=== PATIENT | male | born 1975 | race Caucasian/White ===

== ENCOUNTER 2020-10-23 09:40 | Outpatient (CLI) | payer MEDICARE, MEDICAID, SELFPAY ==
--- NOTE | 2020-10-23 09:57 | US_ITS ---
WS: [id number] RENAL ULTRASOUND HISTORY: BLADDER DYSFUNCTION COMPARISON: None available. TECHNIQUE: 2-D and color Doppler imaging of the kidney submitted. Right kidney: 6.9 cm x 3.8 cm x 3.2 cm. Normal echogenicity with no hydronephrosis or mass. Left kidney: 9.3 cm x 4.4 cm x 4.0 cm. Normal echogenicity with no hydronephrosis or mass. Aorta: Normal. Urinary Bladder: Mildly distended bladder with mild wall thickening. No focal mass. US/US renal BI* [id number] IMPRESSION: Normal renal ultrasound.
== END 2020-10-23 09:41 | disposition home or self-care (01) ==
LOC: RAD 09:46
PROVIDERS: PCP Family Medicine; Visit Provider Urology
DX: N31.9 Neuromuscular dysfunction of bladder, unspecified (principal)
CPT/HCPCS: 76770

== ENCOUNTER 2021-05-18 02:18 | Emergency (ER) | payer MEDICARE, MEDICAID, SELFPAY ==
[2021-05-18 02:25] VITALS: BP 149/71; PULSE 137; RESP 18; TEMP 36.6; O2SAT 97; BMI 17.3
[2021-05-18 04:04] LABS: Add Urine Microscopic? YES; Bilirubin Urine Neg (Negative); Blood Urine 4+ (Negative); Glucose Urine UA Norm (Normal); Ketones Urine Negative (Negative); Leukocyte Esterase Urine Trace (Negative); Nitrate Urine Negative (Negative); Protein Urine 3+ (Negative); Specific Gravity, Urine 1.005 (1.005-1.030); Urine Appearance Cloudy (CLEAR); Urine Color Red (Yellow); Urobilinogen Urine Norm (Negative); pH Urine 7 (5-7)
[2021-05-18 04:05] LABS: Add Urine Culture? Yes; Bacteria Urine 1+ /hpf; RBC Urine TOO NUMEROUS TO CNT /hpf (0-2); Squamous Epithelial Cell Urine 0-4 /hpf (0-5)
[2021-05-18 04:28] VITALS: BP 149/71; PULSE 137; RESP 18; TEMP 36.6; O2SAT 97
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
== END 2021-05-18 04:30 | disposition home or self-care (01) ==
PROVIDERS: Emergency Provider Emergency Medicine
DX: T83.021A Displacement of indwelling urethral catheter, initial encounter (principal); N31.9 Neuromuscular dysfunction of bladder, unspecified; G82.50 Quadriplegia, unspecified; F17.210 Nicotine dependence, cigarettes, uncomplicated
CPT/HCPCS: 51702; 81001; 87077; 87086; 87186; 99283

== ENCOUNTER 2021-10-24 09:36 | Outpatient (CLI) | payer MEDICARE, MEDICAID, SELFPAY ==
--- NOTE | 2021-10-24 10:00 | US_ITS ---
WS: [id number] RENAL ULTRASOUND HISTORY: NEUROGENIC BLADDER COMPARISON: 10/23/2020 TECHNIQUE: 2-D and color Doppler imaging of the kidney submitted. Right kidney: 10.2 cm x 3.8 cm x 3.6 cm. RIGHT kidney is measuring larger today than on the most recent examination. The entire kidney was pro bably not visualized on the prior exam. The measurement appears adequate on today's study. No hydrone phrosis or mass. Left kidney: 9.4 cm x 4.2 cm x 4.4 cm. Normal echogenicity with no hydronephrosis or mass. Aorta: Normal. Urinary Bladder: Mildly distended bladder. No intraluminal filling defect. Bladder wall is mildly thi ckened but this may be due to underdistention or neurogenic bladder. US/US renal BI* [id number] IMPRESSION: 1. Normal renal ultrasound. Previously atrophic RIGHT kidney is better visuali zed today. The measurements are normal. No renal atrophy is identified. 2. Minimally distended urinary bladder.
== END 2021-10-24 09:37 | disposition home or self-care (01) ==
LOC: RAD 09:37
PROVIDERS: Visit Provider Urology
DX: N31.9 Neuromuscular dysfunction of bladder, unspecified (principal)
CPT/HCPCS: 76770

== ENCOUNTER 2022-06-10 19:23 | Emergency (ER) | payer MEDICARE, MEDICAID, SELFPAY ==
[2022-06-10 19:46] VITALS: BP 102/69; PULSE 84; RESP 16; TEMP 37.3; O2SAT 95
[2022-06-10 19:49] VITALS: BP 93/56; PULSE 106; RESP 18; O2SAT 96
[2022-06-10 20:05] VITALS: PULSE 106
--- NOTE | 2022-06-10 20:19 | USR_ITS ---
PROCEDURE INFORMATION: Exam: US Duplex Left Upper Extremity Veins, Limited Exam date and time: 06/10/2022 9:37 PM Age: 46 years old Clinical indication: Edema, localized; Upper extremity, left; Patient HX: Lue edema x 2-3 hours per patient. No history of dvt per patient. ; Additional info: Concern for dvt TECHNIQUE: Imaging protocol: Real-time Duplex ultrasound of the Left Upper Extremity with 2-D malin scale, color Doppler flow and spectral waveform analysis with image documentation. Limited exam focused on the left upper extremity veins. COMPARISON: CT forearm LT w con [id number] 06/10/2022 8:37 PM FINDINGS: Left deep veins: Unremarkable. Axillary and brachial veins are patent throughout without thrombus. Normal Doppler waveforms. Normal compressibility and/or augmentation response. Visualized internal jugular and subclavian veins are patent. Left superficial veins: Unremarkable. Visualized cephalic and basilic veins are patent without thrombus. Soft tissues: Unremarkable. US/[place] [id number] IMPRESSION: No evidence of deep vein thrombosis.
--- NOTE | 2022-06-10 20:19 | CTR_ITS ---
PROCEDURE INFORMATION: Exam: CT Left Upper Extremity With Contrast, Forearm Exam date and time: 06/10/2022 8:37 PM Age: 46 years old Clinical indication: Swelling; Elbow and other: Forearm; Left; Additional info: Concern for deep abscess TECHNIQUE: Imaging protocol: Computed tomography of the Left upper extremity with contrast. Exam focused on the forearm. Radiation optimization: All CT scans at this facility use at least one of these dose optimization techniques: automated exposure control; mA and/or kV adjustment per patient size (includes targeted exams where dose is matched to clinical indication); or iterative reconstruction. Contrast material: OMNIPAQUE 350; Contrast volume: 95 ml; Contrast route: INTRAVENOUS (IV); COMPARISON: No relevant prior studies available. RADIATION DOSE METRICS: Total DLP (mGy-cm): 429.91 FINDINGS: Bones/joints: See Soft tissues finding. Soft tissues: Subcutaneous fluid collection measuring 7 x 5.4 cm seen overlying the posterior aspect of the elbow in the subcutaneous fat consistent with an abscess without bony abnormality or extension of the fluid into the joint space. Diffuse subcutaneous edema throughout the forearm is also seen. CT/CT forearm LT w con [id number] IMPRESSION: Subcutaneous fluid collection measuring 7 x 5.4 cm seen overlying the posterior aspect of the elbow in the subcutaneous fat consistent with an abscess without bony abnormality or extension of the fluid into the joint space. Diffuse subcutaneous edema throughout the forearm is also seen, suggestive of cellulitis.
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
[2022-06-10] MEDS: iohexol 350 mg/mL 500 mL Btl (per mL) IV (20:52)
[2022-06-10 21:30] LABS: Basophils % 0.2 %; Eosinophils % 0.2 %; Hematocrit 40.6 % (42.0-52.0); Hemoglobin 13.8 g/dL (11.7-16.6); Lymphocytes # 1.2 10^3/uL (0.8-4.8); Lymphocytes % 8.4 %; Mean Corpuscular Hemoglobin 29.2 pg (28.0-34.0); Mean Corpuscular Volume 85.8 fl (80-94); Mean Platelet Volume 11.3 fL (7.4-10.4); Monocytes # 1.5 10^3/uL (0.2-0.9); Monocytes % 10.5 %; Neutrophils # 11.53 10^3/uL (1.8-7.7); Neutrophils % 80.4 %; Nucleated Red Blood Cells % 0 %; Platelet Count 167 10^3/cmm (130-400); Red Blood Count 4.73 10^6/uL (4.1-5.3); Red Cell Distribution Width 12.8 % (12.1-15.1); White Blood Count 14.4 10^3/uL (4.0-10.0)
[2022-06-10 21:37] LABS: Erythrocyte Sedimentation Rate 32 mm/hr (0-10)
[2022-06-10 21:48] LABS: Lactate (Lactic Acid level) 1.5 mmol/L (0.5-2.2)
[2022-06-10 21:49] LABS: Alanine Aminotransferase 12 U/L (0-41); Albumin Level 3.6 g/dL (3.5-5.2); Alkaline Phosphatase 97 U/L (40-130); Anion Gap 13.6 (5-19); Aspartate Amino Transferase 16 U/L (0-40); Blood Urea Nitrogen 18 mg/dL (6-20); C Reactive Protein 202.4 mg/L (0.0-4.9); Calcium 8.6 mg/dL (8.5-10.5); Carbon Dioxide 23 mmol/L (22-29); Chloride 100 mmol/L (98-107); Globulin 3.4 g/dL (1.3-4.6); Glucose 122 mg/dL (65-115); Osmolality Calculated 279 mOsm/kg (285-295); Potassium 3.6 mmol/L (3.5-5.1); Sodium 133 mmol/L (136-145); Total Bilirubin 0.5 mg/dL (0.15-1.2)
[2022-06-10] MEDS: lidocaine 1% INJ 20 mL MDV (mL) SUBCUT (22:07)
[2022-06-10] MEDS: cephALEXin 500 mg Capsule PO (22:36)
[2022-06-10] MEDS: sulfamethoxazole-trimeth DS 160-800 mg Tablet 1 TAB PO (22:36)
[2022-06-10] MEDS: HYDROcodone-acetaminophen 5-325 mg Tablet 1 TAB PO (22:36)
[2022-06-10 22:41] VITALS: PULSE 86; RESP 18; O2SAT 97
== END 2022-06-10 22:49 | disposition home or self-care (01) ==
PROVIDERS: Emergency Medicine; Emergency Provider Emergency Medicine
DX: L03.114 Cellulitis of left upper limb (principal); L02.414 Cutaneous abscess of left upper limb; Z87.891 Personal history of nicotine dependence
CPT/HCPCS: 10160; 36415; 73201; 80053; 83605; 85025; 85651; 86140; 87040; 93971; 96372; 99285; Q9967

== ENCOUNTER 2022-10-21 09:13 | Outpatient (CLI) | payer MEDICARE, MEDICAID, SELFPAY ==
--- NOTE | 2022-10-21 09:00 | US_ITS ---
WS: [id number] RENAL ULTRASOUND HISTORY: NEUROGENIC BLADDER COMPARISON: 10/24/2021 TECHNIQUE: 2-D and color Doppler imaging of the kidney submitted. Right kidney: 9.6 cm x 5.5 cm x 4.0 cm. Cortex: 1.0 cm Normal echogenicity with no hydronephrosis or mass. Left kidney: 9.1 cm x 5.0 cm x 3.9 cm. Cortex: 1.1 cm Normal echogenicity with no hydronephrosis or mass. Aorta: Normal. Urinary Bladder: Moderately distended urinary bladder. No intraluminal filling defect. Bladder is not overly distended. US/US renal BI* [id number] IMPRESSION: Normal renal ultrasound. Moderately distended urinary bladder.
== END 2022-10-21 09:14 | disposition home or self-care (01) ==
PROVIDERS: PCP Family Medicine; Visit Provider Urology
DX: N31.9 Neuromuscular dysfunction of bladder, unspecified (principal); N39.0 Urinary tract infection, site not specified
CPT/HCPCS: 76770; 99213

== ENCOUNTER → 2023-09-02 11:25 | Outpatient (BNVA) | payer MEDICARE, MEDICAID, SELFPAY | PROVIDERS: PCP Family Medicine; Visit Provider Family Medicine | DX: Z51.81 Encounter for therapeutic drug level monitoring; Z79.899 Other long term (current) drug therapy | CPT/HCPCS: 80053; 80061; 85025 ==

== ENCOUNTER → 2024-09-27 14:31 | Outpatient (BNVA) | payer MEDICARE, SELFPAY | PROVIDERS: PCP Family Medicine; Visit Provider Family Medicine | DX: Z13.6 Encounter for screening for cardiovascular disorders (principal); Z13.220 Encounter for screening for lipoid disorders; Z13.1 Encounter for screening for diabetes mellitus | CPT/HCPCS: 80053; 80061 ==

== ENCOUNTER → 2024-10-28 16:22 | Outpatient (BNVA) | payer MEDICARE, SELFPAY | PROVIDERS: PCP Family Medicine; Visit Provider Nurse Practitioner | DX: N39.0 Urinary tract infection, site not specified (principal) | CPT/HCPCS: 81000; 87086 ==